=== PATIENT | female | born 1995 | race African-American/Black ===

== ENCOUNTER 2016-10-11 00:19 | Emergency (ER) | payer MEDICAID, OTHER ==
[~2016-10-11] VITALS: Ht 165.1 cm; Wt 59.1 kg
[~2016-10-11 00:19] MED LIST: VENTAER INH; VENTAER2 INH
[2016-10-11] MEDS ORDERED: SODIUM CHLOR 0.9% 1000 ML INJ 1,000 ML IV SCH (00:23)
[2016-10-11] MEDS ORDERED: SODIUM CHLORIDE 0.9% FLUSH 5 ML FLUSH IVF PRN (00:30)
[2016-10-11] MEDS ORDERED: ONDANSETRON HCL 4 MG/2 ML VIAL IV PUSH ONE (00:30)
[2016-10-11 00:31] VITALS: BP 126/80; PULSE 55; RESP 18; TEMP 98.7; O2SAT 100
[2016-10-11 00:52] LABS: AUTOMATED NEUTROPHIL # 5.5 TH/MM3 (1.8-7.7); BASOPHIL % 0.4 % (0.0-2.0); EOSINOPHIL % 0.3 % (0.0-4.0); HEMATOCRIT 40.5 % (35.0-46.0); HEMO FLAGS DIFF FINAL; LYMPH % 28.1 % (9.0-44.0); LYMPHOCYTE # 2.4 TH/MM3 (1.0-4.8); MEAN CELL VOLUME 85.6 FL (80.0-100.0); MEAN CORPUSCULAR HEMOGLOBIN 29.7 PG (27.0-34.0); MEAN CORPUSCULAR HGB CONC 34.6 % (32.0-36.0); MONO % 5.8 % (0.0-8.0); NEUT % 65.4 % (16.0-70.0); PLATELET COUNT 262 TH/MM3 (150-450); RED BLOOD COUNT 4.73 MIL/MM3 (4.00-5.30); WHITE BLOOD COUNT 8.4 TH/MM3 (4.0-11.0)
--- NOTE | 2016-10-11 01:05 | PD ---
HPI Chief Complaint: GI Complaint Time Seen by Provider: 00:23 Travel History International Travel<30 days: No Contact w/Intl Traveler<30days: No Traveled to known affect area: No History of Present Illness HPI 21-year-old female presents after being dropped off by friends with concern of altered mental status from drinking too much and vomiting. Patient cannot provide me any history and intermittently is screaming in the room but does state her name and her age PFSH Past Medical History Medical History: Denies Significant Hx Asthma: Yes Diminished Hearing: No ?: Unknown : 1 Para: 0 : 1 Past Surgical History Surgical History: No Previous Surgery Social History Alcohol Use: Yes (occasionaly ) Tobacco Use: No Substance Use: No Allergies-Medications (Allergen,Severity, Reaction): Coded Allergies: No Known Allergies (Unverified , 10/11/16) Reported Meds & Prescriptions Reported Meds & Active Scripts Active Reported Ventolin Hfa 18 GM Inh (Albuterol Sulfate) 90 Mcg/Act Aer 1 Puff INH Q4H PRN Review of Systems ROS Limitations: Altered Mental Status Except as stated in HPI: all other systems reviewed are Neg Physical Exam Exam Limitations: Altered Mental Status Narrative GENERAL: Well-nourished, well-developed patient. SKIN: Warm and dry. HEAD: Normocephalic and atraumatic. EYES: No injection or drainage. ENT: No nasal drainage noted. NECK: Supple, trachea midline. CARDIOVASCULAR: Regular rate and rhythm RESPIRATORY: Breath sounds equal bilaterally. No accessory muscle use. GASTROINTESTINAL: Abdomen soft, nondistended. NEUROLOGICAL: Awake and alert to name. moves all extremities. slurred speech. Data Data Last Documented VS Vital Signs Date Time Temp Pulse Resp B/P Pulse Ox O2 Delivery O2 Flow Rate FiO2 10/11/16 00:31 98.7 55 18 126/80 100 Orders Alcohol (Ethanol) (10/11/16 00:23) Basic Metabolic Panel (Bmp) (10/11/16 00:23) Complete Blood Count With Diff (10/11/16 00:23) Drug Screen, Random Urine (10/11/16 00:23) Iv Access Insert/Monitor (10/11/16 00:23) Oximetry (10/11/16 00:23) Sodium Chloride 0.9% Flush (Ns Flush) (10/11/16 00:30) Sodium Chlor 0.9% 1000 Ml Inj (Ns 1000 M (10/11/16 00:23) Ondansetron Inj (Zofran Inj) (10/11/16 00:30) Ed Urine Pregnancytest Poc (10/11/16 00:23) Potassium Chlor 10 Meq Premix (Kcl 10 Me (10/11/16 01:30) Potassium Chlor 10 Meq Premix (Kcl 10 Me (10/11/16 03:30) Potassium Chloride Eff (K-Lyte Cl Eff) (10/11/16 06:15) Labs Laboratory Tests Test 10/11/16 00:40 White Blood Count 8.4 TH/MM3 Red Blood Count 4.73 MIL/MM3 Hemoglobin 14.0 GM/DL Hematocrit 40.5 % Mean Corpuscular Volume 85.6 FL Mean Corpuscular Hemoglobin 29.7 PG Mean Corpuscular Hemoglobin 34.6 % Concent Red Cell Distribution Width 13.0 % Platelet Count 262 TH/MM3 Mean Platelet Volume 9.5 FL Neutrophils (%) (Auto) 65.4 % Lymphocytes (%) (Auto) 28.1 % Monocytes (%) (Auto) 5.8 % Eosinophils (%) (Auto) 0.3 % Basophils (%) (Auto) 0.4 % Neutrophils # (Auto) 5.5 TH/MM3 Lymphocytes # (Auto) 2.4 TH/MM3 Monocytes # (Auto) 0.5 TH/MM3 Eosinophils # (Auto) 0.0 TH/MM3 Basophils # (Auto) 0.0 TH/MM3 CBC Comment DIFF FINAL Differential Comment Sodium Level 140 MEQ/L Potassium Level 3.0 MEQ/L Chloride Level 105 MEQ/L Carbon Dioxide Level 22.9 MEQ/L Anion Gap 12 MEQ/L Blood Urea Nitrogen 7 MG/DL Creatinine 0.81 MG/DL Estimat Glomerular Filtration 109 ML/MIN Rate Random Glucose 106 MG/DL Calcium Level 8.3 MG/DL Urine Opiates Screen NEG Urine Barbiturates Screen NEG Urine Amphetamines Screen NEG Urine Benzodiazepines Screen NEG Urine Cocaine Screen NEG Urine Cannabinoids Screen NEG Ethyl Alcohol Level 242 MG/DL MDM Medical Decision Making Medical Screen Exam Complete: Yes Emergency Medical Condition: Yes Medical Record Reviewed: Yes (pmh confirmed) Interpretation(s) CBC & BMP Diagram 10/11/16 00:40 Alcohol level was elevated in the 200s Differential Diagnosis alcohol intoxication, drug co-ingestion, , electrolyte abnormality Narrative Course will check labs and dose with zofran and ivf and reeval patient given 20meq potassium iv and 25meq po and no further emesis, steady gait clear speech, denies new complaints, denies suicidal ideation, counseled on alcohol use and states has support system. Her friend will be taking her home and be her ride, all questions answered. Patient knows that follow up is incumbent on them and to return to the emergency room immediately if new or worsening symptoms develop. Patient given strict return precautions, vitals reviewed and are normal, agrees to further workup as an outpatient. Diagnosis Primary Impression: Alcohol ingestion Additional Impression: Hypokalemia Patient Instructions: General Instructions Additional Instructions: keep hydrated, limit alcohol use, return as needed Med/Other Pt SpecificInfo: No Change to Meds Disposition: 01 DISCHARGE HOME Condition: Stable Kathleen Mendoza MD Oct 11, 2016 01:05
[2016-10-11 01:23] LABS: BICARBONATE 22.9 MEQ/L (21.0-32.0)
[2016-10-11 01:25] LABS: AMPHETAMINE, URINE NEG (NEG); BARBITURATES, URINE NEG (NEG); COCAINE, URINE NEG (NEG)
[2016-10-11] MEDS ORDERED: POTASSIUM CHLOR 10 MEQ PREMIX 100 ML IV ONE ×2 (01:30→03:30)
[2016-10-11] MEDS ORDERED: POTASSIUM CHLORIDE 25 MEQ EFFERVESCENT TAB PO ONE (06:15)
== END 2016-10-11 07:01 | disposition home or self-care (01) ==
LOC: NEPC 00:19
DX: F10.120 Alcohol abuse with intoxication, uncomplicated (principal); Y90.8 Blood alcohol level of 240 mg/100 ml or more
CPT/HCPCS: 80048; 80307; 80320; 84703; 85025; 96361; 96365; 96366; 96375; 99284; J2405; J3480; J7030

== ENCOUNTER 2016-10-31 02:17 | Emergency (ER) | payer MEDICAID ==
[~2016-10-31 02:17] MED LIST changes: -VENTAER2 INH
[2016-10-31 02:22] VITALS: BP 110/50; PULSE 114; RESP 22; TEMP 98; O2SAT 96
--- NOTE | 2016-10-31 02:35 | PD ---
HPI Chief Complaint: Alcohol/Drug Intoxication Time Seen by Provider: 02:27 Travel History International Travel<30 days: No Contact w/Intl Traveler<30days: No Traveled to known affect area: No History of Present Illness HPI The patient is a 21-year-old [place] female who presents emergency department for alcohol intoxication. The patient states she had several alcoholic drinks earlier tonight, liquor, but is unsure of the exact quantity of alcohol she ingested. Friends of the patient states that she has anxiety and had an anxiety attack earlier tonight and stated she had difficulty breathing. However, upon arrival patient states she has no anxiety or shortness of breath. The patient denies any chest pain, shortness breath, nausea, vomiting, or abdominal pain. However, friends state that the patient was dry heaving prior to arrival. Symptoms are moderate, possibly exacerbated by alcohol intoxication, and there are no current alleviating factors. PFSH Past Medical History Asthma: Yes Diminished Hearing: No Respiratory: Yes (ASTHMA) ?: Not LMP: CURRENT : 1 Para: 0 : 1 Social History Alcohol Use: Yes (occasionaly ) Tobacco Use: No Substance Use: No Allergies-Medications (Allergen,Severity, Reaction): Coded Allergies: No Known Allergies (Unverified , 10/31/16) Reported Meds & Prescriptions Reported Meds & Active Scripts Active Reported Ventolin Hfa 18 GM Inh (Albuterol Sulfate) 90 Mcg/Act Aer 1 Puff INH Q4H PRN Review of Systems Except as stated in HPI: all other systems reviewed are Neg Cardiovascular: No: Chest Pain or Discomfort Respiratory: Positive: Shortness of Breath Gastrointestinal: Positive: Nausea (dry heaves per friends), Vomiting (dry heaves per friends) Psychiatric: Positive: Anxiety, Substance Abuse (alcohol ingestion) Physical Exam Narrative GENERAL: Awake, alert, intoxicated 21-year-old female who appears her stated age and is in no acute respiratory distress. SKIN: Warm and dry. HEAD: Atraumatic. Normocephalic. EYES: Pupils equal and round. No scleral icterus. No injection or drainage. ENT: No nasal bleeding or discharge. Mucous membranes pink and moist. NECK: Trachea midline. No JVD. CARDIOVASCULAR: Regular rate and rhythm. No murmur appreciated. RESPIRATORY: No accessory muscle use. Clear to auscultation. Breath sounds equal bilaterally. No wheezes noted. GASTROINTESTINAL: Abdomen soft, non-tender, nondistended. No rebound tenderness. MUSCULOSKELETAL: No obvious deformities. No clubbing. No cyanosis. No edema. NEUROLOGICAL: Awake and alert. No obvious cranial nerve deficits. Motor grossly within normal limits. Normal speech. Nonfocal. PSYCHIATRIC: Appears intoxicated. Data Data Last Documented VS Vital Signs Date Time Temp Pulse Resp B/P Pulse Ox O2 Delivery O2 Flow Rate FiO2 10/31/16 02:22 98.0 114 22 110/50 96 Orders Alcohol (Ethanol) (10/31/16 02:31) Ondansetron Inj (Zofran Inj) (10/31/16 02:45) Sodium Chlor 0.9% 1000 Ml Inj (Ns 1000 M (10/31/16 02:45) Labs Laboratory Tests Test 10/31/16 02:50 Ethyl Alcohol Level 203 MG/DL [facility] Medical Decision Making Medical Screen Exam Complete: Yes Emergency Medical Condition: Yes Medical Record Reviewed: Yes Interpretation(s) Laboratory Tests Test 10/31/16 02:50 Ethyl Alcohol Level 203 MG/DL Differential Diagnosis Differential diagnosis includes alcohol intoxication, asthma exacerbation, anxiety, polysubstance abuse, substance ingestion, dehydration. Narrative Course IV was established, labs are drawn and sent, and the patient was placed on cardiac telemetry monitoring and continuous pulse oximetry monitoring. The patient was administered Zofran 4 mg intravenously and 1 L of IV fluids. The patient's alcohol level CCIII. Patient can be discharged home when she has a safe ride and disposition home. Diagnosis Primary Impression: Alcohol intoxication Qualified Code: F10.120 - Alcohol intoxication, uncomplicated Additional Instructions: Decrease alcohol intake. Ride home with family or friends when patient is able to and bleed without difficulty. Follow-up with your primary physician. Return if symptoms worsen or progress. Med/Other Pt SpecificInfo: No Change to Meds Disposition: 01 DISCHARGE HOME Condition: Stable Raymond Hernandez MD Oct 31, 2016 02:35
[2016-10-31] MEDS ORDERED: SODIUM CHLOR 0.9% 1000 ML INJ 1,000 ML IV ONE (02:45)
[2016-10-31] MEDS ORDERED: ONDANSETRON HCL 4 MG/2 ML VIAL IV PUSH ONE (02:45)
== END 2016-10-31 04:10 | disposition home or self-care (01) ==
LOC: NEPE 02:17
DX: F10.120 Alcohol abuse with intoxication, uncomplicated (principal); Y90.7 Blood alcohol level of 200-239 mg/100 ml
CPT/HCPCS: 80320; 96361; 96374; 99284; J2405; J7030